=== PATIENT | female | born 2000 | race Caucasian/White ===

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

== ENCOUNTER 2018-01-14 09:45 | Emergency (ER) | payer OTHER ==
[~2018-01-14] VITALS: Ht 165.1 cm; Wt 83.9 kg
[~2018-01-14 09:45] MED LIST: AMOX875T PO; PRED50TA PO
[2018-01-14 10:47] VITALS: BP 127/71
--- NOTE | 2018-01-14 11:08 | PHYS DOC ---
Past Medical History Past Medical History: No Pertinent History Past Surgical History: No Surgical History Additional Past Surgical Histo: CARDIAC ABLATION for [id number] Alcohol Use: Occasionally Drug Use: Marijuana Adult General Chief Complaint Chief Complaint: SORE THROAT HPI HPI Patient is a 17 year old [f__sex] who presents with [] Review of Systems Review of Systems Constitutional: Denies fever or chills [] Eyes: Denies change in visual acuity, redness, or eye pain [] HENT: Denies nasal congestion or sore throat [] Respiratory: Denies cough or shortness of breath [] Cardiovascular: No additional information not addressed in HPI [] GI: Denies abdominal pain, nausea, vomiting, bloody stools or diarrhea [] : Denies dysuria or hematuria [] Musculoskeletal: Denies back pain or joint pain [] Integument: Denies rash or skin lesions [] Neurologic: Denies headache, focal weakness or sensory changes [] Endocrine: Denies polyuria or polydipsia [] All other systems were reviewed and found to be within normal limits, except as documented in this note. Current Medications Current Medications Current Medications Medications (Trade) Dose Ordered Sig/Avinash Start Time Stop Time Status Last Admin Dose Admin Dexamethasone Sodium Phosphate (Decadron) 10 mg 1X ONCE 01/14/18 11:15 01/14/18 11:16 DC Ibuprofen (Motrin) 600 mg 1X ONCE 01/14/18 11:15 01/14/18 11:16 UNV Allergies Allergies Allergies Coded Allergies Type Severity Reaction Last Updated Verified No Known Drug Allergies 03/31/17 No Physical Exam Physical Exam Constitutional: Well developed, well nourished, no acute distress, non-toxic appearance. [] HENT: Normocephalic, atraumatic, bilateral external ears normal, oropharynx moist, no oral exudates, nose normal. [] Eyes: PERRLA, EOMI, conjunctiva normal, no discharge. [] Neck: Normal range of motion, no tenderness, supple, no stridor. [] Cardiovascular:Heart rate regular rhythm, no murmur [] Lungs & Thorax: Bilateral breath sounds clear to auscultation [] Abdomen: Bowel sounds normal, soft, no tenderness, no masses, no pulsatile masses. [] Skin: Warm, dry, no erythema, no rash. [] Back: No tenderness, no CVA tenderness. [] Extremities: No tenderness, no cyanosis, no clubbing, ROM intact, no edema. [] Neurologic: Alert and oriented X 3, normal motor function, normal sensory function, no focal deficits noted. [] Psychologic: Affect normal, judgement normal, mood normal. [] Current Patient Data Vital Signs Vital Signs Date Time Temp Pulse Resp B/P (MAP) Pulse Ox O2 Delivery O2 Flow Rate FiO2 01/14/18 10:47 98.4 91 16 127/71 (89) Room Air 98.4 EKG EKG [] Radiology/Procedures Radiology/Procedures [] Course & Med Decision Making Course & Med Decision Making Pertinent Labs and Imaging studies reviewed. (See chart for details) [] Dragon Disclaimer Dragon Disclaimer This electronic medical record was generated, in whole or in part, using a voice recognition dictation system. Departure Departure Impression: Primary Impression: Viral syndrome Additional Impression: Sore throat Disposition: 01 HOME, SELF-CARE Condition: STABLE Referrals: NO PCP (PCP) Patient Instructions: Smoking Cessation, Sore Throat, Viral Syndrome Additional Instructions: Drink plenty of water. Tylenol and/or ibuprofen as needed for pain/fever as directed on container. If symptoms worsen or persist follow-up with primary doctor in next 3-5 days sooner with any concerns. Stop smoking as this can irritate throat and cause cough or worse symptoms. Problem Qualifiers ROSALINO MURRAY APRN Jan 14, 2018 11:08
[2018-01-14] MEDS ORDERED: IBUPROFEN 600 MG TABLET. PO ONE (11:15)
[2018-01-14] MEDS ORDERED: DEXAMETHASONE SOD PHOS 20 MG/5 ML VIAL. PO ONE (11:15)
== END 2018-01-14 11:42 | disposition home or self-care (01) ==
LOC: ER 09:45
DX: B34.9 Viral infection, unspecified (principal)
CPT/HCPCS: 81025; 87070; 87880; 99284; J1100

== ENCOUNTER 2018-08-04 15:58 | Emergency (ER) | payer OTHER ==
[~2018-08-04] VITALS: Ht 165.1 cm; Wt 83.9 kg
[2018-08-04 16:20] VITALS: BP 146/75
--- NOTE | 2018-08-04 16:42 | PHYS DOC ---
Past Medical History Past Medical History: No Pertinent History (SOLANGE DIEGO APRN) Past Surgical History: No Surgical History Additional Past Surgical Histo: CARDIAC ABLATION for Jvpiy-[id number]-Jheim (SOLANGE DIEGO APRN) Alcohol Use: Occasionally Drug Use: Marijuana (SOLANGE DIEGO APRN) Adult General Chief Complaint Chief Complaint: PAIN ON URINATION [facility] HPI Patient is a 17 year old female with no significant medical history who presents to the ED today complaining of dysuria for 2 weeks. Patient denies any other symptoms. (SOLANGE DIEGO APRN) Review of Systems Review of Systems Constitutional: Denies fever or chills [] Eyes: Denies change in visual acuity, redness, or eye pain [] HENT: Denies nasal congestion or sore throat [] Respiratory: Denies cough or shortness of breath [] Cardiovascular: No additional information not addressed in HPI [] GI: Denies abdominal pain, nausea, vomiting, bloody stools or diarrhea [] : Reports dysuria, denies hematuria [] Musculoskeletal: Denies back pain or joint pain [] Integument: Denies rash or skin lesions [] Neurologic: Denies headache, focal weakness or sensory changes [] All other systems were reviewed and found to be within normal limits, except as documented in this note. (SOLANGE DIEGO APRN) Allergies Allergies Allergies Coded Allergies Type Severity Reaction Last Updated Verified No Known Drug Allergies 03/31/17 No (KAMLA BOSCH MD) Physical Exam Physical Exam Constitutional: Well developed, well nourished, no acute distress, non-toxic appearance. [] HENT: Normocephalic, atraumatic, bilateral external ears normal, oropharynx moist, no oral exudates, nose normal. [] Eyes: PERRLA, EOMI, conjunctiva normal, no discharge. [] Neck: Normal range of motion, no tenderness, supple, no stridor. [] Cardiovascular:Heart rate regular rhythm, no murmur [] Lungs & Thorax: Bilateral breath sounds clear to auscultation [] Abdomen: Bowel sounds normal, soft, no tenderness, no masses, no pulsatile masses. [] Skin: Warm, dry, no erythema, no rash. [] Back: No tenderness, no CVA tenderness. [] Extremities: No tenderness, no cyanosis, no clubbing, ROM intact, no edema. [] Neurologic: Alert and oriented X 3, normal motor function, normal sensory function, no focal deficits noted. [] Psychologic: Affect normal, judgement normal, mood normal. [] (SOLANGE DIEGO APRN) Current Patient Data Vital Signs Vital Signs Date Time Temp Pulse Resp B/P (MAP) Pulse Ox O2 Delivery O2 Flow Rate FiO2 08/04/18 16:20 98.5 89 19 146/75 (98) 98 Room Air 98.5 (KAMLA BOSCH MD) Lab Values Laboratory Tests Test 08/04/18 16:11 08/04/18 16:39 Urine Collection Type Unknown Urine Color Yellow Urine Clarity Cloudy Urine pH 6.0 Urine Specific [place] 1.025 Urine Protein 30 mg/dL (NEG-TRACE) Urine Glucose (UA) Negative mg/dL (NEG) Urine Ketones (Stick) Negative mg/dL (NEG) Urine Blood Moderate (NEG) Urine Nitrite Positive (NEG) Urine Bilirubin Negative (NEG) Urine Urobilinogen Dipstick 0.2 mg/dL (0.2 mg/dL) Urine Leukocyte Esterase Large (NEG) Urine RBC 1-2 /HPF (0-2) Urine WBC Tntc /HPF (0-4) Urine Squamous Epithelial Cells Many /LPF Urine Bacteria Many /HPF (0-FEW) Urine Mucus Marked /LPF POC Urine HCG, Qualitative Hcg negative (Negative) Microbiology 08/04/18 Urine Culture - Final, Complete 08/04/18 Urine Culture Result 1 (RUFUS) - Final, Complete 08/04/18 Antimicrobic Susceptibility - Final, Complete (KAMLA BOSCH MD) Lab Values Laboratory Tests Test 08/04/18 16:11 08/04/18 16:39 Urine Collection Type Unknown Urine Color Yellow Urine Clarity Cloudy Urine pH 6.0 Urine Specific [place] 1.025 Urine Protein 30 mg/dL (NEG-TRACE) Urine Glucose (UA) Negative mg/dL (NEG) Urine Ketones (Stick) Negative mg/dL (NEG) Urine Blood Moderate (NEG) Urine Nitrite Positive (NEG) Urine Bilirubin Negative (NEG) Urine Urobilinogen Dipstick 0.2 mg/dL (0.2 mg/dL) Urine Leukocyte Esterase Large (NEG) Urine RBC 1-2 /HPF (0-2) Urine WBC Tntc /HPF (0-4) Urine Squamous Epithelial Cells Many /LPF Urine Bacteria Many /HPF (0-FEW) Urine Mucus Marked /LPF POC Urine HCG, Qualitative Hcg negative (Negative) (SOLANGE DIEGO APRN) EKG EKG [] (SOLANGE DIEGO APRN) Radiology/Procedures Radiology/Procedures [] (SOLANGE DIEGO APRN) Course & Med Decision Making Course & Med Decision Making Pertinent Labs and Imaging studies reviewed. (See chart for details) This is a 17-year-old female patient presenting to the ED today with dysuria for 2 weeks. No other symptoms. Positive for UTI, discharged with cephalexin. Follow-up with primary care doctor in 1-2 weeks. Instructed to push fluids. Tylenol Motrin for pain or fever. Given prescription for Pyridium. (SOLANGE DIEGO APRN) Course & Med Decision Making Staff Physician Addendum: I was working in the ER during the course of this patient's visit. I was available for consultation as needed, but I was not directly involved in the care of this patient. (KAMLA BOSCH MD) Dragon Disclaimer Dragon Disclaimer This electronic medical record was generated, in whole or in part, using a voice recognition dictation system. (SOLANGE DIEGO APRN) Departure Departure Impression: Primary Impression: Urinary tract infection Disposition: 01 HOME, SELF-CARE Condition: STABLE Referrals: UNKNOWN PCP NAME (PCP) follow up with your doctor in 1-2 weeks. Patient Instructions: Urinary Tract Infection Additional Instructions: You have urinary tract infection, we put on antibiotics, ensure you complete them. Take the prescribed medications as ordered. You can also take Tylenol/ Motrin for pain or fever. Please follow-up with your doctor in 1-2 weeks. Please push fluids. Scripts Phenazopyridine Hcl (PYRIDIUM) 100 Mg Tablet 100 MG PO TID PRN for PAIN, #9 TAB Prov: SOLANGE DIEGO APRN 08/04/18 Cephalexin (CEPHALEXIN) 500 Mg Tablet 1 TAB PO BID, #14 TAB Prov: SOLANGE DIEGO APRN 08/04/18 Problem Qualifiers Primary Impression: Urinary tract infection Urinary tract infection type: site unspecified Hematuria presence: without hematuria Qualified Codes: N39.0 - Urinary tract infection, site not specified SOLANGE DIEGO APRN Aug 04, 2018 16:42 KAMLA BOSCH MD Aug 11, 2018 20:20
[2018-08-04 16:45] LABS: BILIRUBIN,URINE NEGATIVE (NEG); CLARITY,URINE CLOUDY; COLOR,URINE YELLOW; NITRITE,URINE POSITIVE (NEG); PROTEIN,URINE 30 mg/dL (NEG-TRACE); UROBILINOGEN,URINE 0.2 mg/dL (0.2 mg/dL)
[2018-08-04 16:59] LABS: BACTERIA,URINE MANY /HPF (0-FEW); SQUAMOUS EPITHELIAL CELL,UR MANY /LPF; WBC,URINE TNTC /HPF (0-4)
[2018-08-04] MEDS ORDERED: CEPH500T PO (17:15)
[2018-08-04] MEDS ORDERED: PHEN100T82 PO (17:15)
== END 2018-08-04 17:18 | disposition home or self-care (01) ==
LOC: ER 15:58
DX: N39.0 Urinary tract infection, site not specified (principal)
CPT/HCPCS: 81001; 81025; 87086; 87186; 99283